=== PATIENT | male | born 1950 | race Caucasian/White ===

== ENCOUNTER 2016-06-01 12:01 | Outpatient (CLI) | payer OTHER ==
--- NOTE | 2016-06-01 16:37 | Diagnostic Imaging Report ---
[facility] [address] [facility].[address] [address] Report Submission Date: Jun 01, 2016 4:33:55 PM CDT Patient Study Name: YANET RODRIGUEZ Date: Jun 01, 2016 12:22:19 PM CDT Modality Type: CR Gender: M Description: LOWER EXTREMITY : 48 Institution: [facility] Physician: PJ GARCIA - AILYN Left foot - three views Clinical history: Injury yesterday. Lateral pain. Findings: Examination of the left foot in plantar, lateral and oblique views demonstrates a mildly comminuted fracture of the fifth metatarsal shaft. The fracture is predominantly oblique in the mid to distal shaft. There is narrowing of the interphalangeal joints. Calcaneal spurs are seen on the lateral view. Impression: 1. Comminuted fracture of the mid to distal fifth metatarsal shaft. 2. Degenerative changes. Electronically signed on Jun 01, 2016 4:33:55 PM CDT by: Avery REID
== END 2016-06-01 12:02 ==
LOC: RAD 12:01
PROVIDERS: ATTEND Family Medicine
DX: S99.922A Unspecified injury of left foot, initial encounter (principal); X58.XXXA Exposure to other specified factors, initial encounter; Y93.9 Activity, unspecified; Y99.9 Unspecified external cause status
CPT/HCPCS: 73630

== ENCOUNTER 2017-03-09 09:51 | Outpatient (CLI) | payer OTHER ==
[2017-03-09 10:28] LABS: eGFR (African) > 60; eGFR (Non-African) 59
== END 2017-03-09 09:52 ==
LOC: LAB 09:51
PROVIDERS: ATTEND Family Medicine
DX: I10 Essential (primary) hypertension (principal)
CPT/HCPCS: 36415; 80048

== ENCOUNTER 2018-12-21 10:31 | Outpatient (CLI) | payer OTHER | END 2018-12-21 10:36 | LOC: LAB 10:31 | PROVIDERS: ATTEND Family Medicine | DX: E29.1 Testicular hypofunction (principal); N40.1 Benign prostatic hyperplasia with lower urinary tract symptoms | CPT/HCPCS: 36415; 84153; 84402 ==

== ENCOUNTER 2019-01-24 14:51 | Outpatient (CLI) | payer OTHER | END 2019-01-24 14:56 | LOC: LAB 14:51 | PROVIDERS: ATTEND Family Medicine | DX: N40.1 Benign prostatic hyperplasia with lower urinary tract symptoms (principal); E29.1 Testicular hypofunction; Z79.890 Hormone replacement therapy | CPT/HCPCS: 36415; 84402; 84403 ==